=== PATIENT | male | born 1960 | race Caucasian/White ===

== ENCOUNTER 2023-04-22 09:38 | Emergency (ER) | payer BC, SELFPAY ==
[2023-04-22 09:46] VITALS: BP 118/78
[2023-04-22 10:34] LABS: % Basophils 0.6 % (0-2); % Eosinophils 2.1 % (0-6); % Immature Granulocytes 0.5 % (0-0.5); % Lymphocytes 24.6 % (20.5-51.1); % Monocytes 9.6 % (1.7-9.3); % Neutrophils 62.6 % (42.2-75.2); Absolute Basophils 0.1 10^3/uL (0-0.2); Absolute Eosinophils 0.2 10^3/uL (0-0.7); Absolute Monocytes 0.8 10^3/uL (0.1-0.6); Absolute Neutrophils 5.1 10^3/uL (1.4-6.5); Hematocrit 40.3 % (39.0-52.0); Hemoglobin 14.1 g/dL (13.0-18.0); Mean Corpuscular Hgb 32.6 pg (27.0-31.0); Mean Corpuscular Volume 93.3 fL (80.0-94.0); Mean Platelet Volume 9.5 fL (7.4-10.4); Nucleated Red Blood Cells % 0 % (-); Platelet Count 213 10^3/uL (130-400); Red Blood Cell Count 4.32 10^6/uL (4.70-6.10); Red Cell Dist. Width 12.1 % (11.5-14.5); White Blood Cell Count 8.1 10^3/uL (4.8-10.8)
[2023-04-22 10:41] LABS: ALT (SGPT) 27 U/L (0-50); AST (SGOT) 27 U/L (17-59); Albumin 3.5 g/dl (3.5-5.0); Alkaline Phosphatase 57 U/L (38-126); Blood Urea Nitrogen 24 mg/dl (9-20); Calcium 9.3 mg/dl (8.4-10.2); Carbon Dioxide 27 mmol/L (22-30); Chloride 103 mmol/L (98-107); Glucose 104 mg/dl (70-99); Potassium 4.2 mmol/L (3.5-5.1); Sodium 137 mmol/L (135-145); Total Bilirubin 1.2 mg/dl (0.2-1.3); Total Protein 6.2 g/dl (6.3-8.2); eGFR > 60.00
[2023-04-22 10:52] LABS: Troponin I < 0.012 ng/ml
[2023-04-22 11:32] VITALS: BP 119/81
--- NOTE | 2023-04-22 11:54 | ED.GENMED ---
History of Present Illness
General
Chief Complaint: Dizziness
Source: patient
Exam Limitations: none
Time Seen by Provider: 04/22/23 11:15
Nursing documentation reviewed up to this point in time: agreed with
Travel History
Have you had any contact with someone who has COVID-19?: No
Do you have any symptoms of coronavirus? Fever > 100 degrees, chills, cough, shortness of breath, sore throat, loss of taste or smell, muscle aches, or headache?: No
History of Present Illness
History of Present Illness:
62-year-old male presenting to the emergency department today with concerns of an episode where he woke up to go to the bathroom in the middle of the night roughly 8 hours prior to arrival and felt lightheaded and had palpitations. He did not pass
out denies any chest pain shortness of breath nausea vomiting was able to go back to sleep woke up this morning had ongoing symptoms spoke with his primary care doctor was told to go to the ER. He said the symptoms resolved just prior to arrival to
the emergency department. Denies similar symptoms in the past.
Review of Systems
Review of Systems
Allergies reviewed?: Yes
All Other Systems: ROS reviewed and negative except as documented in HPI and ROS
Phy Exam
Physical Exam
Physical Exam:
GENERAL: Alert , in no apparent distress
EYE: pupils equal and reactive
NECK: Supple, no significant adenopathy.
ENT: o/p clr, mmm.
CARDIAC: Regular rate and rhythm .
LUNGS: Clear breath sounds bilaterally, no acute respiratory distress, no wheezes/rales/rhonchi
ABDOMEN: Soft, without focal tenderness, no r/g, no cvat
NEUROLOGICAL: Alert and oriented, no focal neuro deficits
SKIN: Warm and dry, skin intact.
MUSCULOSKELETAL: No edema, well perfused.
PSYCH: Normal and appropriate interaction.
Course
Orders/Labs/Results
Orders:
Orders
04/22/23 09:48
EKG [Electrocardiogram (*1)] Urgent
Reason for Study: Palpitations
04/22/23 09:49
EKG- Treatment ONCE
04/22/23 09:57
Complete Blood Count/With Diff Urgent
Comprehensive Metabolic Panel Urgent
Troponin I Urgent
04/22/23 11:45
0.9% Sodium Chloride 1000 ml [Nss] 1,000 ml IV BOLUS
04/22/23 12:04
D-Dimer Urgent
04/22/23 13:04
EKG [Electrocardiogram (*1)] Urgent
Reason for Study: Palpitations
EKG- Treatment ONCE
04/22/23 13:18
Troponin I Urgent
Abnormal Lab Results
04/22/23 04/22/23
09:57 12:04
RBC 4.32 L 10^6/uL
(4.70-6.10)
MCH 32.6 H pg
(27.0-31.0)
Absolute Monos (auto) 0.8 H 10^3/uL
(0.1-0.6)
Monocytes % 9.6 H %
(1.7-9.3)
D-Dimer 0.58 H ug/mlFEU
(0.00-0.50)
BUN 24 H mg/dl
(9-20)
Glucose 104 H mg/dl
(70-99)
Total Protein 6.2 L g/dl
(6.3-8.2)
04/22/23 09:57
04/22/23 09:57
Vital Signs
Initial and Last Documented VS:
Initial Vital Signs
Temp Pulse Resp BP Pulse Ox
98.3 F 73 16 118/78 98
04/22/23 09:46 04/22/23 09:46 04/22/23 09:46 04/22/23 09:46 04/22/23 09:46
Last Documented Vital Signs
Temp Pulse Resp BP Pulse Ox
98.3 F 64 17 125/87 98
04/22/23 09:46 04/22/23 12:00 04/22/23 12:00 04/22/23 12:00 04/22/23 09:46
MDM/Problems Addressed
MDM/Problems Addressed:
62-year-old male presenting to the emergency department today with concerns of dizziness palpitations lightheadedness roughly 8 hours prior to arrival to the emergency department today this occurred when he woke up to go to the bathroom in the
middle night. Ongoing symptoms but was able to go to sleep woke up with similar symptoms lasted for few more hours this morning which prompted come to the ER. Symptoms resolved prior to arrival. Initial EKG is in sinus rhythm with no signs of
arrhythmia or ischemia vital signs normal patient generally well-appearing no acute distress did have slightly elevated BUN level compared to creatinine and was given a liter of fluid. He did have surgery 1 month ago on his shoulder concerning this
D-dimer was obtained though he does not have any additional risk factors for PE. Denies any recent immobilization history of blood clots leg swelling estrogen product usage. Dimer negative per the patient's age-adjusted level. 2 negative troponin
levels patient without findings. Generally well-appearing and reassessment advised for close outpatient follow-up. Return precautions given.
*Critical Care Note
Total Time (30-74mins, 75-104mins- exclusive of procedures): Not Applicable
ED Attending Note
-
Portions of this chart may have been created with voice recognition software.� Occasional wrong word or��sound alike� substitutions may have occurred due to the inherent limitations of voice recognition software.
Discharge Plan
Departure
Patient Disposition: Home (Routine Discharge)
Date of Disposition: 04/22/23
Time of Disposition: 15:32
Patient with high blood pressure during this ER visit?: No
Condition: Good
Covid-19: Not Applicable
Discharge Problem:
Palpitations
Instructions: Dizziness, Nonvertigo, (DC)
Prescriptions:
No Action
escitalopram oxalate 20 mg Tablet
20 mg PO DAILY
Referrals:
Braxton Hart MD [Active] - Follow up in 10 days
Amy Maher CRNP [Family Provider] -
Activity Restrictions/Additional Instructions:
You came to the emergency department today with concerns of palpitations and lightheadedness. Here your labs consistent with mild dehydration. You had improved symptoms after receiving fluids. The remainder of your workup did not show any
emergent findings. Please follow close with cardiology and your primary care doctor. Return to the emergency department any worsening, new or concerning symptoms.
Interventions
Interventions:
*Risk Screen - Suicide Last Done: 04/22/23 09:46
*General Assessment Last Done: 04/22/23 09:46
*Neglect/Abuse Screening Last Done: 04/22/23 09:46
ED- Fall Risk Assessment Last Done: 04/22/23 11:34
*ED COVID-19 Vaccine History Last Done: 04/22/23 11:33
ED- Neurological Assessment Last Done: 04/22/23 11:34
ED- Cardiac Assessment Last Done: 04/22/23 11:34
[2023-04-22 12:00] VITALS: BP 125/87
[2023-04-22] MEDS: NSS 1000 IV (12:05)
[2023-04-22 12:28] LABS: D-Dimer 0.58 ug/mlFEU (0.00-0.50)
[2023-04-22 13:51] LABS: Troponin I < 0.012 ng/ml
[2023-04-22 15:55] VITALS: BP 124/82
[2023-04-22 15:56] VITALS: BP 124/82
== END 2023-04-22 15:57 | disposition home or self-care (01) ==
LOC: EMR 09:38
PROVIDERS: Emergency Medicine; Physician Assistant; EMERGENCY PHYSICIAN Emergency Medicine; FAMILY PHYSICIAN Nurse Practitioner
DX: R00.2 Palpitations (principal); R42 Dizziness and giddiness
CPT/HCPCS: 99284; 80053; 84484; 85025; 85379; 93005